=== PATIENT | female | born 1945 | race Caucasian/White ===

== ENCOUNTER 2017-06-08 15:20 | Emergency (ER) | payer MEDICARE, MEDICAID ==
[2017-06-08 16:00] LABS: % BASOPHILS 0.3 % (0.0-2.0); % EOSINOPHILS 0.3 % (0.0-5.0); % LYMPHOCYTES 14.9 % (20.0-50.0); % NEUTROPHILS 72.5 % (40.0-80.0); HEMATOCRIT 40.3 % (35.0-45.0); HEMOGLOBIN 13.3 gm/dL (11.7-16.1); MEAN CELL VOLUME 85.8 fl (81-100); MEAN CORPUSCULAR HEMOGLOBIN 28.4 pg (27.0-31.0); MEAN CORPUSCULAR HGB CONC 33.1 pg (28.0-36.0); MEAN PLATELET VOLUME 9.6 fl; NEUTROPHILE ABSOLUTE 7.6 Th/cmm (1.8-8.0); PLATELET COUNT 187 Th/cmm (150-400); RED BLOOD COUNT 4.69 Mil/cmm (3.80-5.20); WHITE BLOOD COUNT 10.5 Th/cmm (4.8-10.8)
[2017-06-08 16:12] LABS: INR 0.95 (0.5-1.4); PROTHROMBIN TIME (TEST) 9.9 SECONDS (9.5-11.5)
[2017-06-08 16:14] LABS: ALB/GLOB RATIO 1.6 (1.0-1.8); ALKALINE PHOSPHATASE 85 U/L (34-104); ANION GAP 8.7 (7.0-16.0); BILIRUBIN,TOTAL 0.5 mg/dL (0.3-1.0); BUN - UREA NITROGEN 26 mg/dL (7-25); BUN/CREATININE RATIO 37.1; CALCIUM SERUM 9.4 mg/dL (8.6-10.3); CARBON DIOXIDE 23.2 mEq/L (21.0-31.0); CHLORIDE 107 mEq/L (98-107); CREATININE - SERUM 0.7 mg/dL (0.6-1.2); GLUCOSE 137 mg/dL (70-105); POTASSIUM SERUM 3.9 mEq/L (3.5-5.1); SGOT 19 U/L (13-39); SGPT/ALT 19 U/L (7-52); SODIUM SERUM 135 mEq/L (136-145)
[2017-06-08 16:15] LABS: CHOLESTEROL 135 mg/dL (<200); TRIGLYCERIDES 96 mg/dL (<150)
--- NOTE | 2017-06-08 17:08 | ED Physician Chart ---
Chief Complaint/HPI - Patient Information Date Seen:: 06/08/17 Time Seen:: 16:20 Chief Complaint:: BILATERAL LEG PAIN History of Present Illness:: THIS IS A 72 YR OLD FEMALE WITH CHRONIC LEG PAIN WITH INTERMITTENT EDEMA. SHE NOW CONCERNED ABOUT THE SWELLING. Allergies:: Allergies Allergy/AdvReac Type Severity Reaction Status Date / Time No Known Allergies Allergy Verified 06/08/17 16:01 Vitals:: Vital Signs - 8 hr 06/08/17 16:03 Temp 98.3 F HR 68 RR 17 BP 149/71 O2 Sat % 95 Historian:: Patient, Family Member (DAUGHTER) Review:: Nurse's Note Reviewed Review of Systems - Review of Systems General/Constitutional: No fever, No chills, No weight loss, No weakness, No diaphoresis, No edema, No loss of appetite Skin: No skin lesions, No rash, No bruising Head: No headache, No light-headedness Eyes: No loss of vision, No pain, No diplopia ENT: No earache, No nasal drainage, No sore throat, No tinnitus Neck: No neck pain, No swelling, No thyromegaly, No stiffness, No mass noted Cardio Vascular: No chest pain, No palpitations, No PND, No orthopnea, No edema Pulmonary: No SOB, No cough, No sputum, No wheezing GI: No nausea, No vomiting, No diarrhea, No pain, No melena, No hematochezia, No constipation, No hematemesis G/U: No dysuria, No frequency, No hematuria Musculoskeletal: No bone or joint pain, No back pain, No muscle pain, Other ( EDEMA OF BOTH LOWER LEGS.) Endocrine: No polyuria, No polydipsia Psychiatric: No prior psych history, No depression, No anxiety, No suicidal ideation Hematopoietic: No bruising, No lymphadenopathy Allergic/Immuno: No urticaria, No angioedema Neurological: No syncope, No focal symptoms, No weakness, No paresthesia, No headache, No seizure, No dizziness, No confusion, No vertigo Past Medical History - Past Medical History Obtainable: Yes Past Medical History: HTN, Arthritis Family History: None Social History: Non Smoker, No Alcohol, No Drug Use Surgical History: other (VARICOSE VEIN SURGERY) Psychiatricy History: None Medication: Reviewed Family Medical History - Family Member Mother History Unknown: Yes Physical Exam - Physical Examination General/Constitutional: Awake, Well-developed, well-nourished, Alert, No distress, GCS 15, Non-toxic appearing, Ambulatory Head: Atraumatic Eyes: Lids, conjuctiva normal, PERRL, EOMI Skin: Nl inspection, No rash, No skin lesions, No ecchymosis, Well hydrated, No lymphadenopathy ENMT: External ears, nose nl, Nasal exam nl, Lips, teeth, gums nl Neck: Nontender, Full ROM w/o pain, No JVD, No nuchal rigidity, No bruit, No mass, No stridor Respiratory: Nl effort/Exclusion, Clear to Auscultation, No Wheeze/Rhonchi/Rales Cardio Vascular: RRR, No murmur, gallop, rubs, NL S1 S2 GI: No tenderness/rebounding/guarding, No organomegaly, No hernia, Normal BS's, Nondistended, No mass/bruits, No McBurney tenderness : No CVA tenderness Extremities: No tenderness or effusion, Full ROM, normal strength in all extremities, No edema, Normal digits & nails Other Extremities comments:: THERE IS NO EDEMA BUT THEY ARE TENDER ON PALPATION. THEY ARE NOT RED, WARM OR COLD. Neuro/Psych: Alert/oriented, DTR's symmetric, Normal sensory exam, Normal motor strength, Judgement/insight normal, Mood normal, Normal gait, No focal deficits Misc: normal gait, Normal back, No paraspinal tenderness Labs/Radiology/EKG Results - Lab Results Results: Laboratory Tests 06/08/17 06/08/17 06/08/17 15:52 15:52 15:52 WBC 10.5 RBC 4.69 Hgb 13.3 Hct 40.3 MCV 85.8 MCH 28.4 MCHC Differential 33.1 RDW 14.0 Plt Count 187 MPV 9.6 Neutrophils % 72.5 Lymphocytes % 14.9 L Monocytes % 12.0 H Eosinophils % 0.3 Basophils % 0.3 PT 9.9 INR 0.95 PTT (Actin FS) 23.4 L Sodium Potassium Chloride Carbon Dioxide Anion Gap BUN Creatinine Est GFR ( Amer) Est GFR (Non-Af Amer) BUN/Creatinine Ratio Glucose Calcium Total Bilirubin AST ALT Alkaline Phosphatase Troponin I Total Protein Albumin Globulin Albumin/Globulin Ratio Triglycerides 96 Cholesterol 135 LDL Cholesterol Direct 69 L HDL Cholesterol 60 TSH 06/08/17 06/08/17 06/08/17 15:52 15:52 15:52 WBC RBC Hgb Hct MCV MCH MCHC Differential RDW Plt Count MPV Neutrophils % Lymphocytes % Monocytes % Eosinophils % Basophils % PT INR PTT (Actin FS) Sodium 135 L Potassium 3.9 Chloride 107 Carbon Dioxide 23.2 Anion Gap 8.7 BUN 26 H Creatinine 0.7 Est GFR ( Amer) > 60.0 Est GFR (Non-Af Amer) > 60.0 BUN/Creatinine Ratio 37.1 Glucose 137 H Calcium 9.4 Total Bilirubin 0.5 AST 19 ALT 19 Alkaline Phosphatase 85 Troponin I 0.01 Total Protein 7.1 Albumin 4.4 Globulin 2.7 Albumin/Globulin Ratio 1.6 Triglycerides Cholesterol LDL Cholesterol Direct HDL Cholesterol TSH 0.04 L ED Septic Shock - . Is Septic Shock (SBP<90, OR Lactate>4 mmol\L) present?: No - <6hrs of presentation: Vital Signs: Vital Signs - 8 hr 06/08/17 16:03 Temp 98.3 F HR 68 RR 17 BP 149/71 O2 Sat % 95
--- NOTE | 2017-06-09 08:01 | Diagnostic Imaging Report ---
CHEST X-RAY: AP view INDICATION: Shortness of breath COMPARISON: None FINDINGS: Exam is limited due to body habitus and overlying breast tissue. Chronic interstitial lung changes are seen with no focal consolidation or pleural effusions. Heart size is normal. Atherosclerosis is noted. Degenerative changes of the spine and shoulders are noted. IMPRESSION: Chronic interstitial lung changes. No focal consolidation identified. Atherosclerotic vascular disease.
== END 2017-06-08 17:30 | disposition home or self-care (01) ==
LOC: ER 15:20
DX: G89.29 Other chronic pain (principal); M79.605 Pain in left leg; M79.604 Pain in right leg; R60.0 Localized edema; I10 Essential (primary) hypertension
CPT/HCPCS: 36415-UA; 71010-TC; 80053-TC; 80061-TC; 84443-TC; 84484-TC; 85025-TC; 85610-TC; 85730-TC; 86592-TC; 93005